=== PATIENT | female | born 1980 | race Two or more races ===

== ENCOUNTER → 2016-11-17 | Outpatient (CLI) | payer OTHER ==
[~2016-11-17] MED LIST: IRON 100 PLUS1 EACH PO; NO MEDICATIONS
== END | disposition home or self-care (01) ==
LOC: CAMB 14:55
DX: Z01.812 Encounter for preprocedural laboratory examination (principal)
CPT/HCPCS: 36415; 80053; 85027

== ENCOUNTER → 2016-11-21 | Day surgery (SDC) | payer OTHER ==
[2016-11-17 15:53] LABS: HEMATOCRIT 39.1 % (35.0-45.0); HEMOGLOBIN 12.6 gm/dL (12.0-16.0); MEAN CELL VOLUME 86.9 FL (83-96); MEAN CORPUSCULAR HEMOGLOBIN 28.1 PG (28-34); MEAN CORPUSCULAR HGB CONC 32.4 g/dL (30-36); MEAN PLATELET VOLUME 7.8 FL (6.5-11.5); RED BLOOD COUNT 4.49 X10e (3.90-5.30); RED CELL DISTRIBUTION WIDTH 13.1 % (11.0-15.5); WHITE BLOOD COUNT 5.7 X10e3 (4.0-10.5)
[2016-11-17 16:29] LABS: ALBUMIN SERUM 4.1 g/dL (3.5-5.0); ALKALINE PHOSPHATASE 60 U/L (32-92); ALT (SGPT) 18 U/L (10-40); AST (SGOT) 18 U/L (10-42); BILIRUBIN,TOTAL 0.6 mg/dL (0.2-2.0); BLOOD UREA NITROGEN 13 mg/dL (9-23); BUN/CREATININE RATIO 14.44; CALCIUM SERUM 8.7 mg/dL (8.4-10.2); CARBON DIOXIDE 27 mmol/L (22-31); CHLORIDE 110 mmol/L (100-111); CREATININE SERUM 0.9 mg/dL (0.6-1.4); GLOM FILT RATE Estimated ABOVE60 mL/min (>60); GLUCOSE FASTING 101 mg/dL (70-110); PROTEIN TOTAL SERUM 7.7 g/dL (6.0-8.3); SODIUM 138 mmol/L (135-145)
--- NOTE | ~2016-11-21 | OR ---
Unit #: [id number] #: [id number] Patient: RAINA LOPEZ [id number] [address] [address] [id number] O MR#: [id number] NAME: RAINA LOPEZ ROOM: Date of Procedure: 11/21/2016 Admission Date: 11/21/2016 Surgeon: Tanner Mccall Jr., M.D. : 1980 Attending Physician: Tanner Mccall Jr., M.D. Primary Care Physician: Kenyon Alvarez M.D. OPERATIVE REPORT INDICATIONS FOR PROCEDURE The patient is a 36-year-old female, who recently presented to the office complaining of intermittent biliary colic with right upper quadrant abdominal pain and found to have evidence of gallstones and chronic cholecystitis. She is brought in this time for laparoscopic cholecystectomy at her request. This has been discussed with her through an gang punch operator as well as in the office and the patient understands the procedure including the risks, including that of common duct injury, biliary leak, and bleeding, and intra-abdominal organ injury, and consents. PREOPERATIVE DIAGNOSIS Chronic cholecystitis with cholelithiasis. POSTOPERATIVE DIAGNOSIS Chronic cholecystitis with cholelithiasis, noting significant inflammation of the gallbladder with large stones and very dilated gallbladder. ANESTHESIA General with endotracheal intubation. PROCEDURE PERFORMED Laparoscopic cholecystectomy. DESCRIPTION OF PROCEDURE The patient was positioned in supine position. After being anesthetized and intubated, she was prepped and draped in routine fashion for laparoscopic cholecystectomy. A small infraumbilical incision was made approximately a 1 cm in length. This was carried down to the fascia. The fascia in the umbilicus was lifted with 2 Mony clamps and Veress needle introduced into the abdomen. The abdomen was then inflated with CO2 gas. A 5-mm port was introduced in the abdomen followed by the camera. There was no evidence of any injury related to introduction of the port of the Veress needle. Brief intra-abdominal exploration was carried out. The patient was noted to have evidence of small amount of physiologic appearing blood probably related to menstrual cycle in the pelvic area. No evidence of any other major problems except what appeared to be a large dilated chronically inflamed gallbladder. Two 5-mm ports were placed laterally and an 11-mm port just to the right of the upper midline. The gallbladder was lifted. Dissection was carried out in the triangle of Calot after multiple adhesions were dissected free with both hook scissors as well as blunt dissection. Cystic duct was identified and hemoclipped x4, and divided approximately 1 cm from its junction with the common duct. Unit #: [id number] #: [id number] Patient: RAINA LOPEZ Common duct appeared normal. Cystic artery was identified, hemoclipped x3, and divided. There was an additional posterior branch that was also hemoclipped and divided. The gallbladder was then removed from its bed with the hook cautery using a current of 20. There was some changes in the gallbladder bed compatible with some subacute cholecystitis as well. After the gallbladder was removed from the gallbladder bed, it was placed in EndoCatch bag and brought out through the larger port site once it was dilated some. The port was replaced. Subhepatic space checked. There was a minimal amount of oozing from the gallbladder bed, which was controlled with the Bovie cautery. The clips on cystic duct and cystic artery were intact with no evidence of any leak or bleeding. A small amount of blood was removed with a couple of sponges that had been placed directly in and taken directly out and after sponge count was correct x3, the CO2 was expressed from the abdomen. The ports were removed. There was no evidence of any bleeding from the port sites. The fascia in the larger port site was approximated with [id number] 0 Vicryl suture. The wounds were irrigated. After adequate hemostasis achieved with Bovie cautery, skin edges were approximated with stainless-steel skin clips and skin stapling device. Sterile dressings were applied externally. The port sites were injected with 0.5% Marcaine with epinephrine locally as noted above. After dressings were placed, the patient was taken to the recovery room with stable vital signs in satisfactory condition. Estimated blood loss approximately 25 to 50 mL. The patient received approximately 1000 mL crystalloid solution during the procedure. Sponges and instrument counts were correct x3. No drains used. There were no complications. The patient was taken to the recovery room with stable vital signs in satisfactory condition. Dictated by... Tanner Mccall Jr., M.D. JMB/monae TD: 11/22/2016 00:55 JOB #: [id number] OPERATIVE REPORT X Tanner Mccall MD PROCEDURE OPERATIVE NOTE
== END | disposition home or self-care (01) ==
LOC: CSUR 10:34
PROVIDERS: Surgery
DX: K80.10 Calculus of gallbladder with chronic cholecystitis without obstruction (principal); D64.9 Anemia, unspecified; Z79.891 Long term (current) use of opiate analgesic; Z98.890 Other specified postprocedural states
CPT/HCPCS: 36415; 80053; 84703; 85027; 88304; J0330; J0690; J1100; J1650; J2250; J2405; J2710; J3010

== ENCOUNTER → 2017-06-08 | Outpatient (CLI) | payer OTHER ==
--- NOTE | ~2017-06-08 | MY26 ---
[facility] A Service of [facility] & [facility] RADIOLOGY TEXT RESULTS PATIENT: RAINA LOPEZ LOCATION: [facility] : 78 UNIT #: [id number] AGE: [address]: ILIANA RUANO APRN SEX: F ORDER DR: [id number] [facility] [address] [facility] [address] [place], [place] [address] [id number] O MR#: [id number] Acc #: [id number] NAME: RAINA LOPEZ : 1980 SEX: F STUDY DATE/TIME: 06/08/2017 14:33 UNIT: [facility] ROOM: STUDY DESCRIPTION: MY [facility] DIAGNOSTIC W/ CAD BILAT Attending Physician: Andrea Ruano M.D. Referring Physician: Andrea Ruano M.D. Ordering Physician: Andrea Ruano M.D. Primary Care Physician: Kenyon Alvarez M.D. MEDICAL IMAGING REPORT This report is preliminary unless electronic signature is present EXAM Diagnostic mammogram 06/08 INDICATIONS 36-year-old. No personal or family history of breast cancer. Patient reports a tender nodule in the upper outer left breast near the 12 o'clock position. Patient's physician felt this was well. Symptoms started at 2 months ago. TECHNIQUE Digital CC and MLO views of both breasts were obtained in addition to a left true lateral view. Study was reviewed with an FDA-approved CAD device. COMPARISON 01/15/2015 FINDINGS Breast parenchyma remains heterogeneously dense. No dominant masses or suspicious microcalcifications are seen. Benign calcifications are again seen in both breasts. Ultrasound was performed of the left breast in the area of clinical concern around 12 o'clock. Ultrasound demonstrates a poorly defined area of relative hypoechoic tissue surrounded by a more dense fibrous tissue. This area appears different than the remainder of the breast. While a well-defined mass is not seen, given that this area is palpable, I would recommend ultrasound-guided core biopsy. The findings and recommendations were discussed with the patient at the time of her examination today. Additionally, findings were discussed with Alicia in the breast advocates office for physician notification purposes. IMPRESSION Mammogram is benign, but ultrasound shows a vague area of hypoechoic STS. [facility] A Service of [facility] & [facility] RADIOLOGY TEXT RESULTS PATIENT: RAINA LOPEZ LOCATION: [facility] : 78 UNIT #: [id number] AGE: [address]: ILIANA RUANO APRN SEX: F ORDER DR: tissue corresponding to the palpable abnormality. Ultrasound-guided core biopsy is recommended. Patient's over the age of 40 are entered into a reminder system with target due date for the next mammogram. A result letter will be sent to the patient. BIRADS: 4 Suspicious abnormality, biopsy should be considered. STAT * RESULT Dictated by... Rohan Toscano Jr., M.D. THIS IS AN ELECTRONICALLY VERIFIED REPORT Rohan Toscano Jr., M.D. at 06/09/2017 4:37 PM RLK/carly TD: 06/08/2017 15:12 JOB #: [id number] MEDICAL IMAGING REPORT Page 1 of 1 COPY
--- NOTE | ~2017-06-08 | US24 ---
[facility] A Service of [facility] & [facility] RADIOLOGY TEXT RESULTS PATIENT: RAINA LOPEZ LOCATION: [facility] : 79 UNIT #: [id number] AGE: [address]: ILIANA RUANO APRN SEX: F ORDER DR: [id number] [facility] [address] [place], [place] [address] [id number] O MR#: [id number] Acc #: [id number] NAME: RAINA LOPEZ : 1980 SEX: F STUDY DATE/TIME: 06/08/2017 14:51 UNIT: [facility] ROOM: STUDY DESCRIPTION: US Breast Unilateral Attending Physician: Andrea Ruano M.D. Referring Physician: Andrea Ruano M.D. Ordering Physician: Andrea uRano M.D. Primary Care Physician: Kenyon Alvarez M.D. MEDICAL IMAGING REPORT This report is preliminary unless electronic signature is present EXAM Ultrasound left breast 06/08 INDICATION Palpable abnormality in the left breast for the last 2 months. Tenderness. FINDINGS For a full report, please see the mammogram report dated 06/08/2017. BIRADS: 4 Suspicious abnormality - Biopsy should be considered STAT * RESULT Dictated by... Rohan Toscano Jr., M.D. THIS IS AN ELECTRONICALLY VERIFIED REPORT Rohan Toscano Jr., M.D. at 06/09/2017 4:37 PM PHILIP/eren TD: 06/09/2017 07:53 JOB #: [id number] MEDICAL IMAGING REPORT Page 1 of 1 COPY
== END | disposition home or self-care (01) ==
LOC: CWCC 14:12
DX: N63 Unspecified lump in breast (principal)
CPT/HCPCS: 76641; G0204